=== PATIENT | female | born 2000 | race African-American/Black ===

== ENCOUNTER 2018-04-07 19:07 | Emergency (ER) | payer OTHER ==
--- OUTSIDE RECORDS SUMMARY | 2018-04-07 19:10 | XMS REPORT | Encounter Summary ---
:2000 Author Reason for Visit Medical Complaint Instructions 1. Bacterial vaginosis bacterial vaginosis in teens: care instructions metronidazole 500 mg tablet urinalysis, dipstick CT + NG DNA, PCR, unspecified specimen culture, urine Discussion Note: None recorded. Plan of Care Patient Instructions Increase fluid intake. Take med as prescribed. Wipe front to back. Wear loose cotton underwear. No EtOH while on antibiotic. If symptoms worsen follow with severe back pain, chills, fever, abdominal pain call clinic. Reminders Provider Appointments None recorded. Lab Urinalysis, [facility] Dipstick 11/08/2016 CT + NG DNA, [facility] PCR, Unspecified Specimen 11/08/2016 Culture, Urine [facility] 11/08/2016 Referral None recorded. Procedures None recorded. Surgeries None recorded. Imaging None recorded. Medications Name Start Date metronidazole 500 mg tablet Take 1 tablet every 12 hours by oral route as directed for 7 days. Medications Administered None recorded. Vitals Height Weight BMI Blood Pressure 5 ft 4 in 127 lbs 21.8 kg/m2 118/70 mm[Hg] Lab Results Date Name Specimen Result Interpretation Description Value Range Status Address Urinalysis, Color : Nicky [facility]: Dipstick [address] [place] [address] Clarity : Clear [facility]: [address] [place] [address] Leukocytes : Trace [facility]: [address] [place] [address] Nitrites : Negative [facility]: [address] [place] [address] Urobilinogen : Normal [facility]: [address] [place] [address] Protein : Negative [facility]: [address] [place] [address] Ph : 5.5 [facility]: [address] [place] [address] Blood : Large [facility]: [address] [place] [address] Specific 1.020 [facility]: [place] : [address] [place] [address] Ketones : Negative [facility]: [address] [place] [address] Bilirubin : Negative [facility]: [address] [place] [address] Glucose Negative [facility]: [address] [place] [address] Comments : Pt on [facility]: menstrual 9 [facility] Allergies Code Code System Name Reaction Severity Onset NKDA Problems No Known Problems Procedures None recorded. Vaccine List None recorded. Social History Smoking Status Never Smoker Past Encounters 11/08/2016 Bacterial Vaginosis Safia Mccartney, [facility]: [address] [place] [address], Ph. History of Present Illness [id number] Reported By: Patient HPI: Location: vagina. Quality: ; foul urine. Severity: mild. Duration: started 2 days. Onset/Timing: sudden. Context: not sexually active, no known exposure to STD, no prior history of STDs, unprotected intercourse, heterosexual, vaginal intercourse, wipes anterior to posterior. Modifying factors OTC medication. Associated Symptoms: no fever/chills, no flank pain, no jaundice, no blood in the urine, no pain during urination, no vaginal discharge, no urgency, no blisters on genitals, no rash on genitals, no muscle aches, no headache; foul vaginal "fishy odor" Review of Systems Basic Reported By: Patient Constitutional: Constitutional: no fever Eyes: Eyes: no eye complaints Aajf-Xpwf-Cquik-Throat: Ears: no ear complaints. Nose: no nose/sinus problems. Mouth/Throat: no sore throat, no bleeding gums, no mouth complaints, no teeth problems Cardiovascular: Cardiovascular: no chest pain, no shortness of breath, no known heart murmur Respiratory: Respiratory: no cough, no wheezing, no shortness of breath Gastrointestinal: Gastrointestinal: no abdominal pain, no vomiting / diarrhea Genitourinary: Genitourinary: no urinary complaints, no discharge, vaginal odor Musculoskeletal: Musculoskeletal: no muscle aches, no muscle weakness, no arthralgias/joint pain, no back pain Skin: Skin: no abnormal / changing mole, no jaundice, no rashes Neurologic: Neurologic: no loss of consciousness, no weakness, no numbness, no seizures, no dizziness, no headaches Physical Exam Adult Basic, Adult Female Complete, 14-21 Yr Females Reported By: Patient Constitutional: General Appearance: healthy-appearing, well-nourished, well-developed. Level of Distress: NAD. Ambulation: ambulating normally Psychiatric: Mental Status: active and alert. Orientation: to time, to place, to person Eyes: Lids and Conjunctivae: non-injected, no discharge, no pallor. Pupils: PERRLA. Corneas: grossly intact. EOM: EOMI. Lens: clear. Sclerae: non-icteric. Vision: acuity grossly intact Mtx-Ycyq-Ltsyq-Throat: Ears: no lesions on external ear, no outer ear tenderness, EACs clear, TMs clear. Hearing: no hearing loss. Nose: no lesions on external nose, nares patent, no septal deviation, nasal passages clear, no sinus tenderness, no nasal discharge. Lips, Teeth, and Gums: no mouth or lip ulcers, no bleeding gums, normal dentition. Oropharynx: moist mucous membranes, no erythema, no exudates, tonsils not enlarged Neck: Neck: supple, trachea midline, no masses, FROM. Lymph Nodes: no cervical LAD, no supraclavicular LAD. Thyroid: no enlargement, non-tender, no nodules Lungs: Respiratory effort: no dyspnea, no tachypnea, no use of accessory muscles, no intercostal retractions. Auscultation: breath sounds normal Cardiovascular: Heart Auscultation: RRR, no murmurs. Neck vessels: no carotid bruits
--- OUTSIDE RECORDS SUMMARY | 2018-04-07 19:10 | XMS REPORT | Encounter Summary ---
:2000 Author Reason for Visit Medical Complaint Instructions 1. Venereal disease screening CT + NG DNA, PCR, unspecified specimen Zithromax 500 mg tablet chlamydia: care instructions 2. Exposure to communicable disease Discussion Note: None recorded. Plan of Care Reminders Provider Appointments None recorded. Lab CT + NG DNA, [facility] PCR, Unspecified Specimen 08/14/2016 Referral None recorded. Procedures None recorded. Surgeries None recorded. Imaging None recorded. Medications Name Start Date Zithromax 500 mg tablet Take 2 tablets every day by oral route for 1 day. Medications Administered None recorded. Vitals Height Weight BMI Blood Pressure 5 ft 4 in 132 lbs 22.7 122/70 Lab Results None recorded. Allergies Code Code System Name Reaction Severity Onset NKDA Problems No Known Problems Procedures None recorded. Vaccine List None recorded. Social History None recorded. Past Encounters 08/14/2016 Venereal Disease Screening; Exposure to Communicable Disease Ariana Garcia PA-C: [id number] [facility] , [place] [address], Ph. History of Present Illness [id number] Reported By: Patient HPI: Context: possible/known exposure to STD, vaginal intercourse. Associated Symptoms: no fever/chills, no flank pain, no jaundice, no blood in the urine, no pain during urination, no vaginal discharge, no urgency, no blisters on genitals, no rash on genitals, no muscle aches, no headache Review of Systems Basic Reported By: Patient Constitutional: Constitutional: no fever Eyes: Eyes: no eye complaints Ttyt-Ygyg-Dmdgw-Throat: Ears: no ear complaints. Nose: no nose/sinus problems. Mouth/Throat: no sore throat, no bleeding gums, no mouth complaints, no teeth problems Cardiovascular: Cardiovascular: no chest pain, no shortness of breath, no known heart murmur Respiratory: Respiratory: no cough, no wheezing, no shortness of breath Gastrointestinal: Gastrointestinal: no abdominal pain, no vomiting / diarrhea Genitourinary: Genitourinary: no urinary complaints, no discharge Musculoskeletal: Musculoskeletal: no muscle aches, no muscle weakness, no arthralgias/joint pain, no back pain Skin: Skin: no abnormal / changing mole, no jaundice, no rashes Neurologic: Neurologic: no loss of consciousness, no weakness, no numbness, no seizures, no dizziness, no headaches Physical Exam 14-21 Yr Females Reported By: Patient General Appearance: General: well-developed, well-nourished, no acute distress Eyes: External Eye: no discharge. Conjunctiva: non-injected, non-icteric. Pupils: equal size, round, reactive to light. Extraocular Movements: normal cover/uncover test Cardiovascular: Apical impulse: not displaced. Rate and rhythm: regular. Heart Sounds: no murmur, no gallops, no rub, normal femoral pulse Lungs: Auscultation: clear to auscultation, no wheezing, no rales/crackles, no rhonchi, no tachypnea, no retractions. Percussion: normal, no dullness, no hyperresonance, no tympany Abdomen: Palpation: non-distended, no guarding, no tenderness, (normal) bowel sounds. Liver: non-tender, no hepatomegaly. Spleen: non-tender, no splenomegaly. Hernia: no palpable hernias
--- OUTSIDE RECORDS SUMMARY | 2018-04-07 19:10 | XMS REPORT | Continuity of Care Document ---
:2000 Author Organization Interface Problems Problem Status Onset Classification Date Comments Source Date Reported Acute 02/19/20 Diagnosis 02/19/2017 [facility] tonsillitis 17 Fever 02/19/20 Diagnosis 02/19/2017 [facility] 17 Bacterial 11/09/19 Diagnosis 11/08/2016 [facility] vaginosis 17 Venereal disease 08/15/19 Diagnosis 08/15/2016 [facility] screening 17 Exposure to 08/15/19 Diagnosis 08/15/2016 [facility] communicable 17 disease No current Problem 02/19/2017 [facility] problems or disability Medications Medication Details Route Status Patient Ordering Order Source Instructions Provider Date Acetaminophen acetaminophen Active [facility] 500 MG Oral 500 mg tablet Tablet Take 2 tablets by oral route. Amoxicillin 875 amoxicillin 875 Active [facility] MG Oral Tablet mg tablet Take 1 tablet every 12 hours by oral route as directed for 10 days. Metronidazole metronidazole Active [facility] 500 MG Oral 500 mg tablet Tablet Take 1 tablet every 12 hours by oral route as directed for 7 days. Azithromycin Zithromax 500 Active [facility] 500 MG Oral mg tablet Take Tablet 2 tablets every [Zithromax] day by oral route for 1 day. Allergies, Adverse Reactions, Alerts Substance Category Reaction Severity Reaction Status Date Comments Source type Reported Immunizations Immunization Date Given Site Status Last Updated Comments Source Results Order Name Results Value Reference Date Interpretation Comments Source Range RESULT negative 02/18 [facility] RESULT negative 02/18 [facility] SWAB LOCATION Left and 02/18 [facility] Right /2016 tonsillar pillars Influenza A negative 02/18 [facility] Influenza B negative 02/18 [facility] Urinalysis COLOR : Nicky 11/08 [facility] macro (dipstick) panel - Urine Urinalysis CLARITY : Clear 11/08 [facility] (dipstick) panel - Urine Urinalysis LEUKOCYTES : Trace 11/08 [facility] macro (dipstick) panel - Urine Urinalysis NITRITES : Negative 11/08 [facility] (dipstick) panel - Urine Urinalysis UROBILINOGEN Normal 11/08 [facility] macro : (dipstick) panel - Urine Urinalysis PROTEIN : Negative 11/08 [facility] macro (dipstick) panel - Urine Urinalysis pH : 5.5 11/08 [facility] macro (dipstick) panel - Urine Urinalysis BLOOD : Large 11/08 [facility] macro (dipstick) panel - Urine Urinalysis SPECIFIC 1.020 11/08 [facility] macro GRAVITY : (dipstick) panel - Urine Urinalysis KETONES : Negative 11/08 [facility] macro (dipstick) panel - Urine Urinalysis BILIRUBIN : Negative 11/08 [facility] macro (dipstick) panel - Urine Urinalysis GLUCOSE Negative 11/08 [facility] macro (dipstick) panel - Urine Urinalysis COMMENTS : Pt on 11/08 [facility] macro (dipstick) panel - Urine Vital Signs Vital Sign Value Date Comments Source Diastolic (mm Hg) 62 02/18/2017 [facility] Height 64 02/18/2017 [facility] Systolic (mm Hg) 104 02/18/2017 [facility] Weight 133 02/18/2017 [facility] Diastolic (mm Hg) 70 11/08/2016 [facility] Height 64 11/08/2016 [facility] Systolic (mm Hg) 118 11/08/2016 [facility] Weight 127 11/08/2016 [facility] Diastolic (mm Hg) 70 08/14/2016 [facility] Height 64 08/14/2016 [facility] Systolic (mm Hg) 122 08/14/2016 [facility] Weight 132 08/14/2016 [facility] Encounters Location Location Encounter Encounter Reason Attending ADM DC Status Source Details Type Number For Provider Date Date Visit [place] - Ariana [id number] Ariana 08/14 [facility] Angel Garcia-[id number] Jose /Ángela - PAJose ManuelC: 2805 [id number] [id number] [facility] [place] [address] , Ph. LLOYD - Safia [id number] Safia 11/08 [facility] Angel Mccartney-[id number] Mccartney ACCOUNTING GENERALIST: 2805 [id number] [place] [address] , Ph. LLOYD Richard Safia [id number] Safia 02/18 [facility] RedRenata Mccartney, [id number] Mccartney ACCOUNTING GENERALIST: 2805 [id number] [place] [address] , Ph. Procedures Procedure Code Date Perfomer Comments Source
--- OUTSIDE RECORDS SUMMARY | 2018-04-07 19:10 | XMS REPORT | Encounter Summary ---
:2000 Author Reason for Visit Medical Complaint Instructions 1. Acute tonsillitis rapid strep group A, throat mononucleosis, heterophile Ab, blood amoxicillin 875 mg tablet culture, throat 2. Fever rapid flu (A+B) acetaminophen 500 mg tablet Discussion Note: None recorded.Patient educational handouts: No information available. Plan of Care Patient Instructions Take antibiotic as prescribed. Handwashing. Increase fluid intake and plenty of rest. May take tynenol/motrin for pain. may use cloraseptic throat spray for sore throat. Gargles warm salt water, cepacol. Throw away old toothbrush after 2 days of antibiotic. Avoid sharing drinks/utensils. If no improvement in 3 days, or worsening of symptoms, see primary care physician or call clinic. Reminders Provider Appointments None recorded. Lab Rapid Flu (A+B) [facility] 02/18/2017 Rapid Strep [facility] Group a, Throat 02/18/2017 Mononucleosis, [facility] Heterophile Ab, Blood 02/18/2017 Culture, Throat [facility] 02/18/2017 Referral None recorded. Procedures None recorded. Surgeries None recorded. Imaging None recorded. Medications Name Start Date acetaminophen 500 mg tablet Take 2 tablets by oral route. amoxicillin 875 mg tablet Take 1 tablet every 12 hours by oral route as directed for 10 days. Medications Administered Name Date acetaminophen 500 mg tablet [id number] Take 2 tablets by oral route. Vitals Height Weight BMI Blood Pressure 5 ft 4 in 133 lbs 22.8 kg/m2 104/62 mm[Hg] Lab Results Date Name Specimen Result Interpretation Description Value Range Status Address Mononucleosis, Result negative [facility]: Heterophile Ab, [address] [facility] Rapid Strep Group Result negative [facility]: a, Throat [facility] Swab Left and [facility]: Location Right [address] [facility] tonsillar [place], [facility] Rapid Flu (A+B) Influenza a negative [facility]: [facility] Influenza B negative [facility]: [facility] Allergies Code Code System Name Reaction Severity Status Onset NKDA Problems No Known Problems Procedures None recorded. Vaccine List None recorded. Social History Smoking Status Never Smoker Past Encounters 02/18/2017 Acute Tonsillitis; Fever Safia Mccartney [employer]: [address] [place] [address], Ph. History of Present Illness Throat-Oral Complaint Reported By: Patient HPI: Location: throat. Quality: sore throat. Severity: severe, pain level 10/10. Duration: 2 days. Onset/Timing: sudden. Modifying factors: OTC medication. Associated Symptoms: no fever, no headache, no body aches, no sputum production, no shortness of breath, no wheezing, no change in number of pillows needed to sleep at night, no sweats, no significant weight gain, no significant weight loss, no morning cough, no vomiting, no diarrhea, no rash, no nausea, fever, sore throat Review of Systems Basic Reported By: Patient Constitutional: Constitutional: fever Eyes: Eyes: no eye complaints Hcbv-Uvfz-Leyax-Throat: Ears: no ear complaints. Nose: no nose/sinus problems. Mouth/Throat: no bleeding gums, no mouth complaints, no teeth problems, sore throat Cardiovascular: Cardiovascular: no chest pain, no shortness [...] dizziness, no headaches Physical Exam Adult Basic, 14-21 Yr Male, Adult Female Complete, 14-21 Yr Females Reported By: Patient Constitutional: General Appearance: healthy-appearing, well-nourished, well-developed. Level of Distress: acutely ill. Ambulation: ambulating normally Psychiatric: Mental Status: active and alert, normal affect, normal mood. Orientation: to time, to place, to person Eyes: Lids and Conjunctivae: non-injected, no discharge, no pallor. Pupils: PERRLA, equal size, round, reactive to light. Corneas: grossly intact. EOM: EOMI, normal cover/uncover test. Lens: clear. Sclerae: non-icteric. Vision: acuity grossly intact Jea-Wvgw-Zkmvi-Throat: Ears: no lesions on external ear, no outer ear tenderness, EACs clear, TMs clear. Hearing: no hearing loss. Nose: no lesions on external nose, nares patent, no septal deviation, nasal passages clear, no sinus tenderness, no nasal discharge. Lips, Teeth, and Gums: no mouth or lip ulcers, no bleeding gums, normal dentition. Oropharynx: moist mucous membranes, erythema, exudates, tonsils enlarged 3+ Neck: Neck: supple, trachea midline, no masses, FROM. Lymph Nodes: no supraclavicular LAD, anterior cervical LAD. Thyroid: no enlargement, non-tender, no nodules, no asymmetry Lungs: Respiratory effort: no dyspnea, no tachypnea, no use of accessory muscles, no intercostal retractions. Auscultation: breath sounds normal, clear to auscultation, no wheezing, no rales/crackles, no rhonchi, no retractions Cardiovascular: Heart Auscultation: RRR, no murmurs, no gallops, no rub, normal femoral pulse. Apical impulse: not displaced. Rate and rhythm: regular. Neck vessels: no carotid bruits
[2018-04-07 21:10] LABS: Urine Bacteria <20 /HPF (<20); Urine Culture Reflex Order REFLEXED; Urine Mucus LIGHT /HPF (NONE SEEN); Urine RBC <5 /HPF (NONE SEEN)
[2018-04-07 22:05] LABS: Urine Blood 1+ (NEG); Urine Glucose NEGATIVE (NEG); Urine Protein NEGATIVE (NEG); Urine Specific Gravity >1.030 (1.005-1.030)
--- NOTE | 2018-04-07 23:19 | EDPHYS ---
Physician Documentation [facility] Name: Ashkan Lopez Age: 17 yrs Sex: Female : 2000 Arrival Date: 04/07/2018 Time: 19:08 Bed 9 Private MD: ED Physician Ben Stoll HPI: 04/07 22:04 This 17 yrs old Black Female presents to ER via Ambulatory with complaints of Pain With snw Urination. 22:04 The patient presents with vaginal discharge, that is malodorous green discharge, snw patient has not had similar discharge in the past. Onset: The symptoms/episode began/occurred suddenly, 1.5 week(s) ago, and became persistent. Associated signs and symptoms: The patient has no apparent associated signs or symptoms. Severity of symptoms: At their worst the symptoms were moderate. The patient has not experienced similar symptoms in the past. The patient has not recently seen a physician. 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 - Social history:: Smoking status: Patient/guardian denies using tobacco. - Ebola Screening: : Patient negative for fever greater than or equal to 101.5 degrees Fahrenheit, and additional compatible Ebola Virus Disease symptoms Patient denies exposure to infectious person Patient denies travel to an Ebola-affected area in the 21 days before illness onset No symptoms or risks identified at this time. ROS: 22:02 Constitutional: Negative for fever, chills, and weight loss, Eyes: Negative for injury, snw pain, redness, and discharge, ENT: Negative for injury, pain, and discharge, Neck: Negative for injury, pain, and swelling, Cardiovascular: Negative for chest pain, palpitations, and edema, Respiratory: Negative for shortness of breath, cough, wheezing, and pleuritic chest pain, Abdomen/GI: Negative for abdominal pain, nausea, vomiting, diarrhea, and constipation, Back: Negative for injury and pain, : Negative for injury, bleeding, and swelling, + discharge x 1.5 weeks MS/Extremity: Negative for injury and deformity, Skin: Negative for injury, rash, and discoloration, Neuro: Negative for headache, weakness, numbness, tingling, and seizure, Psych: Negative for depression, anxiety, suicide ideation, homicidal ideation, and hallucinations. Exam: 22:01 Constitutional: This is a well developed, well nourished patient who is awake, alert, snw and in no acute distress. Head/Face: Normocephalic, atraumatic. Eyes: Pupils equal round and reactive to light, extra-ocular motions intact. Lids and lashes normal. Conjunctiva and sclera are non-icteric and not injected. Cornea within normal limits. Periorbital areas with no swelling, redness, or edema. ENT: Nares patent. No nasal discharge, no septal abnormalities noted. Tympanic membranes are normal and external auditory canals are clear. Oropharynx with no redness, swelling, or masses, exudates, or evidence of obstruction, uvula midline. Mucous membranes moist. Neck: Trachea midline, no thyromegaly or masses palpated, and no cervical lymphadenopathy. Supple, full range of motion without nuchal rigidity, or vertebral point tenderness. No Meningismus. Chest/axilla: Normal chest wall appearance and motion. Nontender with no deformity. No lesions are appreciated. Cardiovascular: Regular rate and rhythm with a normal S1 and S2. No gallops, murmurs, or rubs. Normal PMI, no JVD. No pulse deficits. Respiratory: Lungs have equal breath sounds bilaterally, clear to auscultation and percussion. No rales, rhonchi or wheezes noted. No increased work of breathing, no retractions or nasal flaring. Abdomen/GI: Soft, non-tender, with normal bowel sounds. No distension or tympany. No guarding or rebound. No evidence of tenderness throughout. Back: No spinal tenderness. No costovertebral tenderness. Full range of motion. Skin: Warm, dry with normal turgor. Normal color with no rashes, no lesions, and no evidence of cellulitis. MS/ Extremity: Pulses equal, no cyanosis. Neurovascular intact. Full, normal range of motion. Neuro: Awake and alert, GCS 15, oriented to person, place, time, and situation. Cranial nerves II-XII grossly intact. Motor strength 5/5 in all extremities. Sensory grossly intact. Cerebellar exam normal. Normal gait. 22:42 : Pelvic Exam: Speculum exam: scant bleeding, cervicitis present, os that is open, snw bimanual exam reveals normal findings, no cervical motion tenderness, Sexual behavior: the patient is sexually active, and reports a single partner, +green dc. Vital Signs: 19:25 BP 124 / 70; Pulse 98; Resp 19; Temp 97.9; Pulse Ox 98% on R/A; Weight 59.87 kg; Height aj 5 ft. 4 in. (162.56 cm); 19:25 Body Mass Index 22.66 (59.87 kg, 162.56 cm) aj MDM: 20:42 Patient medically screened. snw 23:19 Data reviewed: vital signs, nurses notes. Data interpreted: Pulse oximetry: on room air snw is 98 %. Interpretation: normal. Counseling: I had a detailed discussion with the patient and/or guardian regarding: the historical points, exam findings, and any diagnostic results supporting the discharge/admit diagnosis, lab results, the need for outpatient follow up, to return to the emergency department if symptoms worsen or persist or if there are any questions or concerns that arise at home. Special discussion: Based on the history and exam findings, there is no indication for further emergent testing or inpatient evaluation. I discussed with the patient/guardian the need to see the OB Gyne specialist for further evaluation of the symptoms. I discussed with the patient/guardian the need to see the primary care provider for further evaluation of the symptoms. 04/07 19:40 Order name: Urine Culture w 04/07 19:40 Order name: Urine Microscopic Only; Complete Time: 21:12 w 04/07 20:39 Order name: Urine Dipstick--Ancillary (enter results); Complete Time: 22:06 ms 04/07 20:39 Order name: Urine --Ancillary (enter results); Complete Time: 22:06 ms 04/07 21:47 Order name: Wet Prep; Complete Time: 23:16 snw 04/07 21:47 Order name: GC Probe snw 04/07 19:40 Order name: Urine Test (obtain specimen); Complete Time: 20:38 snw 04/07 19:40 Order name: Urine Dipstick-Ancillary (obtain specimen); Complete Time: 20:38 snw 04/07 21:47 Order name: Pelvic Exam Setup; Complete Time: 22:46 snw Administered Medications: 23:35 Drug: Rocephin (cefTRIAXone) 1 grams Route: IM; Site: right gluteus; aj1 23:54 Follow up: Response: No adverse reaction aj1 23:35 Drug: Zithromax 1 grams Route: PO; aj1 23:54 Follow up: Response: No adverse reaction aj1 Disposition: 04/07/18 23:18 Discharged to Home. Impression: Vaginitis following delivery, Vaginitis, vulvitis and vulvovaginitis in diseases classified elsewhere. - Condition is Stable. - Discharge Instructions: Sexually Transmitted Disease, How to Take a Sitz Bath, Vaginitis. - Medication Reconciliation Form, Thank You Letter, Antibiotic Education, Prescription Opioid Use form. - Follow up: Private Physician; When: 2 - 3 days; Reason: Recheck today's complaints, Continuance of care, Re-evaluation by your physician. Follow up: Emergency Department; When: As needed; Reason: Worsening of condition. Addendum: 04/09/2018 20:59 Co-signature as Attending Physician, Ben Stoll MD. g s Signatures: Dispatcher [employer] EDMS Cammie Wiley RN RN ajZuleima Piña RN RN aj Carri Pabon, HIGH PRESSURE BOILER OPERATOR-C HIGH PRESSURE BOILER OPERATOR-Csnw Ben Stoll MD MD gs Corrections: (The following items were deleted from the chart) 04/07 23:56 23:18 04/07/2018 23:18 Discharged to Home. Impression: Vaginitis following delivery; aj1 Vaginitis, vulvitis and vulvovaginitis in diseases classified elsewhere. Condition is Stable. Forms are Medication Reconciliation Form, Thank You Letter, Antibiotic Education, Prescription Opioid Use. Follow up: Private Physician; When: 2 - 3 days; Reason: Recheck today's complaints, Continuance of care, Re-evaluation by your physician. Follow up: Emergency Department; When: As needed; Reason: Worsening of condition. snw
--- NOTE | 2018-04-07 23:19 | ER ---
Nurse's Notes [facility] Name: Ashkan Lopez Age: 17 yrs Sex: Female : 2000 Arrival Date: 04/07/2018 Time: 19:08 Bed 9 Private MD: Diagnosis: Vaginitis following delivery;Vaginitis, vulvitis and vulvovaginitis in diseases classified elsewhere Presentation: 04/07 19:23 Presenting complaint: Patient states: Yellow vaginal discharge and "fishy" odor for 1.5 aj weeks. Reports tenderness at vaginal opening and burning with urination. Transition of care: patient was not received from another setting of care. Onset of symptoms was March 30, 2018. Risk Assessment: Do you want to hurt yourself or someone else? Patient reports no desire to harm self or others. Initial Sepsis Screen: Does the patient meet any 2 criteria? No. Patient's initial sepsis screen is negative. Does the patient have a suspected source of infection? No. Patient's initial sepsis screen is negative. Care prior to arrival: None. 19:23 Method Of Arrival: Ambulatory 19:23 Acuity: CLARI 3 aj Triage Assessment: 19:25 General: Appears in no apparent distress. comfortable, Behavior is calm, cooperative, aj appropriate for age. Pain: Denies pain. Neuro: Level of Consciousness is awake, alert, obeys commands, Oriented to person, place, time, situation, Appropriate for age. Respiratory: Airway is patent Trachea midline Respiratory effort is even, unlabored, Respiratory pattern is regular, symmetrical. : Reports discharge, malodorous, yellow. Derm: Skin is intact, is healthy with good turgor, Skin is pink, warm \\T\\ dry. normal. 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 - Social history:: Smoking status: Patient/guardian denies using tobacco. - Ebola Screening: : Patient negative for fever greater than or equal to 101.5 degrees Fahrenheit, and additional compatible Ebola Virus Disease symptoms Patient denies exposure to infectious person Patient denies travel to an Ebola-affected area in the 21 days before illness onset No symptoms or risks identified at this time. Screenin:54 Abuse screen: Denies threats or abuse. Denies injuries from another. Nutritional aj1 screening: No deficits noted. Tuberculosis screening: No symptoms or risk factors identified. Fall Risk None identified. Assessment: 20:54 General: Appears in no apparent distress. comfortable, Behavior is calm, cooperative, aj1 appropriate for age. Pain: Denies pain. Neuro: Level of Consciousness is awake, alert, obeys commands. Cardiovascular: Patient's skin is warm and dry. Respiratory: Airway is patent Respiratory effort is even, unlabored, Respiratory pattern is regular, symmetrical. GI: No signs and/or symptoms were reported involving the gastrointestinal system. : Reports discharge, from vagina that is malodorous, yellow. EENT: No signs and/or symptoms were reported regarding the EENT system. Derm: No signs and/or symptoms reported regarding the dermatologic system. Skin is pink, warm \\T\\ dry. normal. Musculoskeletal: No signs and/or symptoms reported regarding the musculoskeletal system. Circulation, motion, and sensation intact. 22:00 Reassessment: Patient appears in no apparent distress at this time. No changes from aj1 previously documented assessment. Patient and/or family updated on plan of care and expected duration. Pain level reassessed. Patient is alert, oriented x 3, equal unlabored respirations, skin warm/dry/pink. 23:00 Reassessment: Patient appears in no apparent distress at this time. No changes from aj1 previously documented assessment. Patient and/or family updated on plan of care and expected duration. Pain level reassessed. Patient is alert, oriented x 3, equal unlabored respirations, skin warm/dry/pink. Vital Signs: 19:25 BP 124 / 70; Pulse 98; Resp 19; Temp 97.9; Pulse Ox 98% on R/A; Weight 59.87 kg; Height aj 5 ft. 4 in. (162.56 cm); 19:25 Body Mass Index 22.66 (59.87 kg, 162.56 cm) aj ED Course: 19:08 Patient arrived in ED. am2 19:25 Triage completed. aj 19:25 Arm band placed on left wrist. Patient placed in waiting room, Patient notified of wait aj time. 19:39 Carri Pabon FNP-C is [facility]. snw 19:39 Ben Stoll MD is Attending Physician. snw 20:25 Cammie Wiley, RN is Primary Nurse. aj1 20:54 Patient has correct armband on for positive identification. Bed in low position. Call aj1 light in reach. Side rails up X 1. 20:54 No provider procedures requiring assistance completed. aj1 22:46 Assist provider with pelvic exam: Set up pelvic tray. Performed by Carri OCHOA Specimens sent to lab. Patient tolerated well. 23:55 Patient did not have IV access during this emergency room visit. aj1 Administered Medications: 23:35 Drug: Rocephin (cefTRIAXone) 1 grams Route: IM; Site: right gluteus; aj1 23:54 Follow up: Response: No adverse reaction aj1 23:35 Drug: Zithromax 1 grams Route: PO; aj1 23:54 Follow up: Response: No adverse reaction aj1 Outcome: 23:18 Discharge ordered by MD. snw 23:55 Discharged to home ambulatory. aj1 23:55 Condition: good 23:55 Discharge instructions given to patient, Instructed on discharge instructions, follow up and referral plans. Demonstrated understanding of instructions, follow-up care. 23:56 Patient left the ED. aj1 Signatures: Cammie Wiley, RN RN Zuleima De Los Santos, RN RN Carri Lopez FNP-C MARBLE RUBBER-Csnw Zuleima Bowie
[2018-04-07] MEDS ORDERED: CEFTRIAXONE 1000 MG/VIAL ONE (23:30)
[2018-04-07] MEDS ORDERED: AZITHROMYCIN 250 MG TAB ONE (23:30)
[2018-04-10 18:46] LABS: C.trachomatis RNA,TMA Not Detected (Not Detected)
== END 2018-04-07 23:56 | disposition home or self-care (01) ==
LOC: ER 19:07
DX: N77.1 Vaginitis, vulvitis and vulvovaginitis in diseases classified elsewhere (principal)
CPT/HCPCS: 81003; 81015; 81025; 87086; 87088; 87210; 87490; 87590; 96372; 99283

== ENCOUNTER 2018-08-22 16:14 | Emergency (ER) | payer OTHER, SELFPAY ==
--- OUTSIDE RECORDS SUMMARY | 2018-08-22 16:17 | XMS REPORT | Continuity of Care Document ---
:2000 Author Organization Interface Problems Problem Status Onset Classification Date Comments Source Date Reported Full-term 01/22/20 08/01/2018 [facility] premature 18 rupture of membranes, unspecified as to length of time between rupture and onset of labor Resolved 01/11/20 Problem 08/01/2018 [facility] 18 Active 01/11/20 [facility] 18 Mj Active 01/11/20 [place] [id number] [place] Acute 02/19/20 Diagnosis 02/19/2017 [facility] tonsillitis 17 Fever 02/19/20 Diagnosis 02/19/2017 [facility] 17 Bacterial 11/09/19 Diagnosis 11/08/2016 [facility] vaginosis 17 Venereal disease 08/15/19 Diagnosis 08/15/2016 [facility] screening 17 Exposure to 08/15/19 Diagnosis 08/15/2016 [facility] communicable 17 disease 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 complicating childbirth 39 weeks 08/01/2018 [facility] gestation of Single live 08/01/2018 [facility] Anemia 08/01/2018 [facility] complicating childbirth Anemia, 08/01/2018 [facility] unspecified Encounter for 08/01/2018 [facility] supervision of normal , unspecified, unspecified [facility] [place] [facility] , Medications Medication Details Route Status Patient Ordering Order Source Instructions Provider Date Ibuprofen 600 mg, 1 tab, No Longer [place] Route: PO, Active 2018 Drug form: TAB, Q6H, Dosing Weight 66.364, kg, Start date: 01/11/18 12:00:00 CDT, Duration: 30 day, Stop date: 02/10/18 6:00:00 CDTNotes: (Same as: Gabby) "Do Not Crush" Take with food. ferrous sulfate 325 mg=1 tab, Active Carmen 325 mg oral PO, Daily, # 2018 enteric coated 30 tab, 0 tablet Refill(s) ibuprofen 600 mg 600 mg=1 tab, No Longer [place] oral tablet PO, Q6H, # 30 Active 2018 tab, 0 Refill(s) Docusate Sodium 100 mg=1 cap, Active [place] 100 MG Oral PO, BID, PRN 2018 Capsule Constipation, # 60 cap, 0 Refill(s) 1 tab, Route: No Longer [place] Multivitamins PO, Drug Form: Active 2018 oral tablet TAB, Dosing Weight 66.364, kg, Daily, Start date: 01/11/18 9:00:00 CDT, Duration: 30 day, Stop date: 02/09/18 9:00:00 CDT M-M-R II 0.5 mL, Route: No Longer [place] SUB-Q, Drug Active 2017 Form: PDR/INJ, Dosing Weight 66.364, kg, ONCALL, Give only if patient rubella non-immune, Start date: 01/11/18 8:00:00 CDT, Duration: 1 doses or timesNotes: (Same as: M-M-R II) (measles-mumps -rubella virus vaccine 0.5 ml INJ VL) WASTE: F/P - Red; E -Red GIVE PRIOR TO DISCHARGE Acetaminophen 325 1 tab, Route: No Longer [place] MG / Hydrocodone PO, Drug Form: Active 2018 Bitartrate 5 MG TAB, Dosing Oral Tablet Weight 66.364, kg, Q4H, PRN Pain Score 4-6, Start date: 01/11/18 7:55:00 CDT, Duration: 30 day, Stop date: 02/10/18 7:54:00 CDTNotes: (Same as: [place] 325/5) Do not exceed 4gm/day of acetaminophen. Acetaminophen 325 1 tab, Route: No Longer [place] MG / Hydrocodone PO, Drug Form: Active 2018 Bitartrate 10 MG TAB, Dosing Oral Tablet Weight 66.364, kg, Q4H, PRN Pain Score 7-10, Start date: 01/11/18 7:55:00 CDT, Duration: 30 day, Stop date: 02/10/18 7:54:00 CDTNotes: Do not exceed 4gm/day of acetaminophen. (Same as: [place] 325/10) Methylergonovine 0.2 mg, 1 mL, No Longer [place] Route: IM, Active 2017 Drug form: INJ, PRN, Dosing Weight 66.364, kg, PRN Other -See Comment, Start date: 01/11/18 7:55:00 CDT, Duration: 30 day, Stop date: 02/10/18 7:54:00 CDTNotes: (Same as:Methergine) Benzocaine 200 1 spray, No Longer [place] MG/ML Topical Route: TOP, Active 2018 [place] PRN, Drug [Dermoplast] form: SPRY, PRN Irritation, Start date: 01/11/18 7:55:00 CDT, Duration: 30 day, Stop date: 02/10/18 7:54:00 CDTNotes: (Same As: Dermoplast) WASTE: Aerosol - Return to Pharmacy FOR EXTERNAL USE ONLY Ondansetron 4 mg, 2 mL, No Longer [place] Route: IVP, Active 2017 Drug form: INJ, Q8H, Dosing Weight 66.364, kg, PRN Nausea & Vomiting, Start date: 01/11/18 7:55:00 CDT, Duration: 30 day, Stop date: 02/10/18 7:54:00 CDTNotes: (Same as: Zofran) MEDICATION WASTE Product Size: 4 mg Product Wasted: ___ mg Docusate 100 mg, 1 cap, No Longer [place] Route: PO, Active 2017 Drug form: CAP, BID, Dosing Weight 66.364, kg, PRN Constipation, Start date: 01/11/18 7:55:00 CDT, Duration: 30 day, Stop date: 02/10/18 7:54:00 CDTNotes: (Same as: Colace) (Do Not Crush) lanolin topical 1 appl, Route: No Longer [place] TOP, PRN, Drug Active 2018 form: CRM, PRN Other -See Comment, Start date: 01/11/18 7:55:00 CDT, Duration: 30 day, Stop date: 02/10/18 7:54:00 CDT zolpidem 5 mg, 1 tab, No Longer 09/08/ [facility] Route: PO, Active 2017 Drug form: TAB, Bedtime, Dosing Weight 66.364, kg, PRN Sleep, Start date: 01/11/18 7:55:00 CDT, Duration: 30 day, Stop date: 02/10/18 7:54:00 CDTNotes: (Same As: Ambien) Bisacodyl 10 mg, 1 supp, No Longer [place] Route: FL, Active 2017 Drug form: SUPP, PRN, Dosing Weight 66.364, kg, PRN Other -See Comment, Start date: 01/11/18 7:55:00 CDT, Duration: 30 day, Stop date: 02/10/18 7:54:00 CDTNotes: (Same As: Dulcolax, [place]isco-Lax) Oxytocin 30 unit, 500 No Longer [place] mL, Rate: 42 Active 2017 ml/hr, Infuse over: 11.9 hr, Dosing Weight 66.364, kg, Route: IV, Total Volume: 500 mL, Start date: 01/11/18 7:55:00 CDT, Duration: 2 day, Stop date: 01/13/18 7:54:00 CDT, Replace Every: 11.9 hr Lactated Ringers 1,000 mL, No Longer [place] IV 1,000 mL Rate: 100 Active 2017 ml/hr, Infuse over: 10 hr, Route: IV, Dosing Weight 66.364 kg, Total Volume: 1,000, Start date: 01/11/18 7:55:00 CDT, Duration: 30 day, Stop date: 02/10/18 7:54:00 CDT, 1.75, m2 RhoGam (MAR 300 microgram, Inactive [place] Charting) Route: IM, 2018 ONCE, Dosing Weight 66.364, kg, Start date: 01/11/18 2:04:00 CDT, Stop date: 01/11/18 2:04:00 CDT Penicillin G 2,500,000 No Longer [place] unit, Route: Active 2018 IVPB, ABXQ4H, Dosing Weight 66.364, kg, Start date: 01/10/18 17:00:00 CDT, Duration: 30 day, Stop date: 02/09/18 13:00:00 CDTNotes: (Same as: Pfizerpen) MEDICATION WASTE Product Size: 5,000,000 unit Product Wasted: ___ unit Pitocin 30 units 30 unit, 500 No Longer [place] in NS 500ml mL, Rate: See Active 2018 (Titrate) IV 30 Order Comments unit for Rate Details, Dosing Weight 66.364, kg, Route: IV, Total Volume: 500 mL, Priority: STAT, Start date: 01/10/18 16:06:00 CDT, Duration: 2 day, Stop date: 01/12/18 16:05:00 CDT, Replace Every: 24 hr Penicillin G 5,000,000 Inactive [place] Potassium [id number] unit, Route: 2018 UNT/ML Injectable IVPB, ONCALL, Solution Dosing Weight 66.364, kg, Start date: 01/10/18 13:00:00 CDT, Duration: 1 doses or timesNotes: (Same as: Pfizerpen) MEDICATION WASTE Product Size: 5,000,000 unit Product Wasted: ___ unit Misoprostol 1,000 No Longer [place] microgram, 5 Active 2017 tab, Route: FL, Drug form: TAB, ONCALL, Dosing Weight 66.364, kg, Start date: 01/10/18 13:00:00 CDT, Duration: 1 doses or timesNotes: (Same as:Cytotec) Take with food Famotidine 20 mg, 2 mL, No Longer [place] Route: IVP, Active 2017 Drug form: INJ, ONCALL, Dosing Weight 66.364, kg, Start date: 01/10/18 13:00:00 CDT, Duration: 30 day, Stop date: 02/09/18 12:59:00 CDTNotes: (Same as: Pepcid) Can be dilute in 5-10cc NS IVP: Slow IV push over at least 2 minutes. Citric Acid / 30 mL, Route: No Longer [place] sodium citrate PO, Drug Form: Active 2018 SOLN, Dosing Weight 66.364, kg, ONCALL, Start date: 01/10/18 13:00:00 CDT, Duration: 30 day, Stop date: 02/09/18 12:59:00 CDTNotes: (Same As: Bicitra) Methylergonovine 0.2 mg, 1 mL, No Longer [place] Route: IM, Active 2018 Drug form: INJ, ONCALL, Dosing Weight 66.364, kg, Start date: 01/10/18 13:00:00 CDT, Duration: 30 day, Stop date: 02/09/18 12:59:00 CDTNotes: (Same as:Methergine) Carboprost 250 microgram, No Longer [place] 1 mL, Route: Active 2018 IM, Drug form: INJ, ONCALL, Dosing Weight 66.364, kg, Start date: 01/10/18 13:00:00 CDT, Duration: 30 day, Stop date: 02/09/18 12:59:00 CDTNotes: (Same As: Hemabate) Lidocaine 200 mg, 20 mL, No Longer [place] Hydrochloride 10 Route: PERCUT, Active 2018 MG/ML Injectable Drug Form: Solution INJ, Dosing Weight 66.364, kg, PRN, PRN Other -See Comment, Start date: 01/10/18 12:38:00 CDT, Duration: 1 doses or times, Stop date: Limited # of timesNotes: (Same as: Xylocaine) Terbutaline 0.25 mg, 0.25 No Longer [place] mL, Route: Active 2018 SUB-Q, Drug form: INJ, PRN, Dosing Weight 66.364, kg, PRN Other -See Comment, Start date: 01/10/18 12:38:00 CDT, Duration: 1 doses or times, Stop date: Limited # of timesNotes: DO NOT USE IN [employer] OF [employer] S[employer] IMPA[employer] AREA (Same As: Brethine) Acetaminophen 325 2 tab, Route: No Longer [place] MG / Hydrocodone PO, Drug Form: Active 2018 Bitartrate 5 MG TAB, Dosing Oral Tablet Weight 66.364, kg, Q4H, PRN Pain Score 7-10, Start date: 01/10/18 12:38:00 CDT, Duration: 30 day, Stop date: 02/09/18 12:37:00 CDTNotes: (Same as: [place] 325/5) Do not exceed 4gm/day of acetaminophen. Ondansetron 4 mg, 2 mL, No Longer [place] Route: IVP, Active 2017 Drug form: INJ, Q8H, Dosing Weight 66.364, kg, PRN Nausea & Vomiting, Start date: 01/10/18 12:38:00 CDT, Duration: 30 day, Stop date: 02/09/18 12:37:00 CDTNotes: (Same as: Alexandra) MEDICATION WASTE Product Size: 4 mg Product Wasted: ___ mg Butorphanol 1 mg, 1 mL, No Longer [place] Route: IVP, Active 2017 Drug form: INJ, Q2H, Dosing Weight 66.364, kg, PRN Pain Score 4-6, Start date: 01/10/18 12:38:00 CDT, Duration: 30 day, Stop date: 02/09/18 12:37:00 CDTNotes: (Same As: Stadol) Oxytocin 30 unit, 500 No Longer [place] mL, Rate: 42 Active 2017 ml/hr, Infuse over: 11.9 hr, Dosing Weight 66.364, kg, Route: IV, Total Volume: 500 mL, Start date: 01/10/18 12:38:00 CDT, Duration: 2 day, Stop date: 01/12/18 12:37:00 CDT, Replace Every: 11.9 hr Lactated Ringers 1,000 mL, No Longer [place] IV 1,000 mL Rate: 125 Active 2018 ml/hr, Infuse over: 8 hr, Route: IV, Dosing Weight 66.364 kg, Total Volume: 1,000, Start date: 01/10/18 12:38:00 CDT, Duration: 30 day, Stop date: 02/09/18 12:37:00 CDT, 1.75, m2 Calcium Chloride 1,000 mL, No Longer [place] 0.0014 MEQ/ML / 1,000 ml/hr, Active 2018 Potassium Infuse Over: 1 Chloride 0.004 hr, Route: IV, MEQ/ML / Sodium 1,000, Drug Chloride 0.103 form: INJ, MEQ/ML / Sodium ONCE, Dosing Lactate 0.028 Weight 66.364 MEQ/ML Injectable kg, Start Solution date: 01/10/18 12:38:00 CDT, Stop date: 01/10/18 12:38:00 CDT, Bolus for regional anesthesia per unit routine Ibuprofen 600 mg, 1 tab, No Longer [place] Route: PO, Active 2017 Drug form: TAB, Q6H, Dosing Weight 66.364, kg, PRN Other -See Comment, Start date: 01/10/18 12:38:00 CDT, Duration: 30 day, Stop date: 02/09/18 12:37:00 CDTNotes: (Same as: Motrin) "Do Not Crush" Take with food. tetanus/diphth/pe 0.5 mL, Route: Inactive [place] rtuss (Tdap) IM, Drug Form: 2017 adult/adol SUSP, kg, ONCALL, Start date: 01/10/18 0:00:00 CDT, Duration: 1 doses or timesNotes: (Tdap ) For Adolecent and Adult use For IM Use. Same as: Adacel (Tdap) Acetaminophen 500 acetaminophen Active [facility] MG Oral Tablet 500 mg tablet Take 2 tablets by oral route. Amoxicillin 875 amoxicillin Active [facility] MG Oral Tablet 875 mg tablet Take 1 tablet every 12 hours by oral route as directed for 10 days. Azithromycin 500 Zithromax 500 Active [facility] MG Oral Tablet mg tablet Take [Zithromax] 2 tablets every day by oral route for 1 day. Metronidazole 500 metronidazole Active [facility] MG Oral Tablet 500 mg tablet Take 1 tablet every 12 hours by oral route as directed for 7 days. Allergies, Adverse Reactions, Alerts Substance Category Reaction Severity Reaction Status Date Comments Source type Reported Immunizations Immunization Date Site Status Last Comments Source Given Updated diphtheria/pertus Left completed [facility] sis, acel/tetanus 8 deltoid adult RhoGam (Jul Right completed [place] Result [facility] Charting)<sup>1</ 8 deltoid Comment: sup> verified with chelsey parker RN Results Order Name Results Value Reference Date Interpretation Comments Source Range HEMATOLOGY Hct 31.3 % 36.0 - 01/12 [facility] 48.0 /2017 HEMATOLOGY Hgb 10.4 g/dL 12.0 - 01/12 [facility] 16. BLOOD BANK SCREEN Neg 01/11 [facility] /2017 (01/11/18 5:33 AM) BLOOD BANK [place] Product available 3 01/11 Result Comment: 01/11/2018 06 :33 [id number] [facility] called to sylvie for pick up driver 01/11/2018 06:33 tb (01/11/18 5:00 AM) BLOOD BANK AB Int Rhig 01/10 [facility] RESULTS Anti-D BLOOD BANK ABO/Rh A NEG 01/10 [facility] BLOOD BANK [place] Reqd See Note 2 01/10 Result Comment: 01/11/2018 01:47 [id number] [facility] This patient is a candidate for RhO(D) immune globulin. 01/11/2018 01:47 tb (01/10/18 1:32 PM) BLOOD BANK Antibody Scrn Positive 1 01/10 Result Comment: 01/10/2018 14 :31 [id number] [facility] "Significant Findings called to Cornell Bradshaw at _2017 14:31 by LL_. Read Back OK." (01/10/18 1:32 PM) HEMATOLOGY Lymphocytes # 1.6 K/CMM 1.0 - 5.5 01/10 [facility] HEMATOLOGY Monocytes # 0.6 K/CMM 0.0 - 0.8 01/10 [facility] HEMATOLOGY Segs 67.7 % 45.0 - 01/10 [facility] 75.0 HEMATOLOGY Eosinophils 0.7 % 0.0 - 4.0 01/10 [facility] HEMATOLOGY Neutrophils # 4.6 K/CMM 1.5 - 8.1 01/10 [facility] HEMATOLOGY Basophils 0.2 % 0.0 - 1.0 01/10 [facility] HEMATOLOGY Lymphocytes 23.3 % 20.0 - 01/10 [facility] 40.0 HEMATOLOGY Monocytes 8.1 % 2.0 - 12.0 01/10 [facility] HEMATOLOGY Hct 31.9 % 36.0 - 01/10 [facility] 48.0 HEMATOLOGY Hgb 10.7 g/dL 12.0 - 01/10 [facility] 16.0 HEMATOLOGY RBC 3.84 M/CMM 4.20 - 01/10 [facility] 5.40 /2018 HEMATOLOGY Platelet 190 K/CMM 133 - 450 01/10 [facility] HEMATOLOGY RDW 17.4 % 11.5 - 01/10 [facility] 14.5 HEMATOLOGY MCHC 33.5 g/dL 32.0 - 01/10 [facility] 36.0 /2017 HEMATOLOGY MCH 27.9 pg 27.0 - 01/10 [facility] 31.0 /2017 HEMATOLOGY MCV 83.1 fL 80.0 - 01/10 [facility] 98.0 /2017 HEMATOLOGY MPV 8.8 fL 7.4 - 10.4 01/10 [facility] HEMATOLOGY WBC 6.8 K/CMM 3.7 - 10.4 01/10 [facility] IMMUNOLOGY HIV. Negative Negative 01/10 [facility] *NA* (01/10/18 1:32 PM) IMMUNOLOGY Hep Bs Ag Negative Negative 01/10 [facility] *NA* (01/10/18 1:32 PM) IMMUNOLOGY Treponemal Ab Non-Reactive Non 01/10 [facility] *NA* (01/10/18 1:32 PM) BODY FLUIDS Amnisure ROM Positive 1 Negative 01/10 Result Comment: *ABN* "Significa nt (01/10/18 12:06 PM) Findings called to cornell collado_ at 01/10/2018 12:26_ by ws_. Read Back OK." RESULT negative 02/18 [facility] RESULT negative 02/18 [facility] SWAB LOCATION Left and 02/18 [facility] Right /2017 tonsillar pillars Influenza A negative 02/18 [facility] Influenza B negative 02/18 [facility] Urinalysis COLOR : Nicky 11/08 [facility] macro (dipstick) panel - Urine Urinalysis CLARITY : Clear 11/08 [facility] (dipstick) panel - Urine Urinalysis LEUKOCYTES : Trace 11/08 [facility] (dipstick) panel - Urine Urinalysis NITRITES : Negative 11/08 [facility] (dipstick) panel - Urine Urinalysis UROBILINOGEN Normal 11/08 [facility] macro (dipstick) panel - Urine Urinalysis PROTEIN : Negative 11/08 [facility] macro (dipstick) panel - Urine Urinalysis pH : 5.5 11/08 [facility] macro (dipstick) panel - Urine Urinalysis BLOOD : Large 11/08 [facility] macro (dipstick) panel - Urine Urinalysis SPECIFIC 1.020 11/08 [facility] macro (dipstick) panel - Urine Urinalysis KETONES : Negative 11/08 [facility] macro (dipstick) panel - Urine Urinalysis BILIRUBIN : Negative 11/08 [facility] macro (dipstick) panel - Urine Urinalysis GLUCOSE Negative 11/08 [facility] macro (dipstick) panel - Urine Urinalysis COMMENTS : Pt on 11/08 [facility] macro (dipstick) panel - Urine Vital Signs Vital Sign Value Date Comments Source Systolic (mm Hg) 105 01/12/2018 [facility] Diastolic (mm Hg) 65 01/12/2018 [facility] Respitory Rate 18 01/12/2018 [facility] Heart Rate 82 01/12/2018 [facility] Temperature Oral (F) 97.6 F 01/12/2018 [facility] Systolic (mm Hg) 97 01/12/2018 [facility] Diastolic (mm Hg) 54 01/12/2018 [facility] Temperature Oral (F) 98.4 F 01/12/2018 [facility] Respitory Rate 16 01/12/2018 [facility] Respitory Rate 16 01/12/2018 [facility] Temperature Oral (F) 98.5 F 01/12/2018 [facility] Systolic (mm Hg) 115 01/12/2018 [facility] Diastolic (mm Hg) 58 01/12/2018 [facility] Height 162.56 cm 01/10/2018 [facility] BMI Calculated 25.11 01/10/2018 [facility] Weight 66.364 01/10/2018 [facility] Diastolic (mm Hg) 62 02/18/2017 [facility] Height [...] Provider Date Date Visit [place] - Ariana [id number] Ariana 08/14 [facility] Jose, [id number] Garcia c - PA-C: [id number] [place] [address] , Ph. LLOYD Baig [id number] Safia 11/08 [facility] [place]rill [id number] Mccartney c - [employer] OFF[employer]ER: [id number] [place] [address] , Ph. LLOYD Baig [id number] Safia 02/18 [facility] [place], [id number]- Mccartney c - [employer]NAG[employer] OFFICER: [id number] [address] [place] [address] , Ph. [facility] [phone] Lucian 01/10 01/12 SUELLEN Barker [place] /2017 [facility] Procedures Procedure Code Date Perfomer Comments Source
--- OUTSIDE RECORDS SUMMARY | 2018-08-22 16:18 | XMS REPORT | Summary of Care ---
:2000 Author Organization [facility] Address [id number] [place] [id number] Encounter HQ Silke(FLORENTIN) [id number] Date(s): 01/10/18 - 01/12/18 [facility] [id number] [place] [phone] Encounter Diagnosis Full-term premature rupture of membranes, unspecified as to length of time between rupture and onsetof labor (Final) - 01/20/18 Streptococcus B carrier state complicating childbirth (Final) - 39 weeks gestation of (Final) - Single live (Final) - Anemia complicating childbirth (Final) - Anemia, unspecified (Final) - Encounter for supervision of normal , unspecified, unspecified trimester (Final) - Discharge Disposition: Home or Self Care Attending Physician: Lucian Nazario MD Admitting Physician: Lucian Nazario MD Vital Signs Most recent to oldest [Reference 1 2 3 Range]: Height 162.56 cm (01/10/18 11:51 AM) Temperature Oral [96.4-99.1 97.6 DegF 98.4 DegF 98.5 DegF DegF] (01/12/18 8:04 AM) (01/12/18 4:10 AM) (01/12/18 12:02 AM) Blood Pressure [90-140/60-90 105/65 mmHg 97/54 mmHg 115/58 mmHg mmHg] (01/12/18 8:04 AM) (01/12/18 4:10 AM) (01/12/18 12:02 AM) Respiratory Rate [14-20 BRMIN] 18 BRMIN 16 BRMIN 16 BRMIN (01/12/18 8:04 AM) (01/12/18 4:10 AM) (01/12/18 12:02 AM) Peripheral Pulse Rate [60-100 82 bpm bpm] (01/12/18 8:04 AM) Weight 66.364 kg (01/10/18 11:51 AM) Body Mass Index 25.11 m2 (01/10/18 11:51 AM) Problem List Condition Effective Dates Status Health Status Informant (Confirmed) 01/10/18 - 01/10/18 Resolved (Confirmed) 11/20/13 - 08/20/14 Resolved Allergies, Adverse Reactions, Alerts Substance Reaction Severity Status NKDA Active Medications acetaminophen-hydrocodone 325 mg-10 mg oral tablet 1 tab, Route: PO, Drug Form: TAB, Dosing Weight 66.364, kg, Q4H, PRN Pain Score 7-10, Start date: 01/11/18 7:55:00 CDT, Duration: 30 day, Stop date: 02/10/18 7: 54:00 CDT Notes: Do not exceed 4gm/day of acetaminophen. (Same as: Goodman 325/10) Start Date: 01/11/18 Stop Date: 01/12/18 Status: Discontinuedacetaminophen-hydrocodone 325 mg-5 mg oral tablet 1 tab, Route: PO, Drug Form: TAB, Dosing Weight 66.364, kg, Q4H, PRN Pain Score 4-6, Start date: 01/11/18 7:55:00 CDT, Duration: 30 day, Stop date: 02/10/18 7: 54:00 CDT Notes: (Same as: Goodman 325/5) Do not exceed 4gm/day of acetaminophen. Start Date: 01/11/18 Stop Date: 01/12/18 Status: Discontinuedacetaminophen-hydrocodone 325 mg-5 mg oral tablet 2 tab, Route: PO, Drug Form: TAB, Dosing Weight 66.364, kg, Q4H, PRN Pain Score 7-10, Start date: 01/10/18 12:38:00 CDT, Duration: 30 day, Stop date: 02/09/18 12:37:00 CDT Notes: (Same as: Goodman 325/5) Do not exceed 4gm/day of acetaminophen. Start Date: 01/10/18 Stop Date: 01/11/18 Status: Discontinuedacetaminophen-hydrocodone 325 mg-5 mg oral tablet 1 tab, Route: PO, Drug Form: TAB, Dosing Weight 66.364, kg, Q4H, PRN Pain Score 4-6, Start date: 01/10/18 12:38:00 CDT, Duration: 30 day, Stop date: 02/09/18 12 :37:00 CDT Notes: (Same as: Goodman 325/5) Do not exceed 4gm/day of acetaminophen. Start Date: 01/10/18 Stop Date: 01/11/18 Status: Discontinuedbisacodyl 10 mg, 1 supp, Route: AK, Drug form: SUPP, PRN, Dosing Weight 66.364, kg, PRN Other -See Comment, Start date: 01/11/18 7:55:00 CDT, Duration: 30 day, Stop date: 02/10/18 7:54:00 CDT Notes: (Same As: Dulcolax, Bisco-Lax) Start Date: 01/11/18 Stop Date: 01/12/18 Status: Discontinuedbisacodyl 15 mg, 3 tab, Route: PO, Drug form: ECTAB, Daily, Dosing Weight 66.364, kg, PRN Other -See Comment, Start date: 01/11/18 7:55:00 CDT, Duration: 30 day, Stop date: 02/10/18 7:54:00 CDT Notes: (Same As: Dulcolax, Correctol) (Do Not Crush) "Do Not Crush" Start Date: 01/11/18 Stop Date: 01/12/18 Status: Discontinuedbutorphanol 1 mg, 1 mL, Route: IVP, Drug form: INJ, Q2H, Dosing Weight 66.364, kg, PRN Pain Score 4-6, Start date: 01/10/18 12:38:00 CDT, Duration: 30 day, Stop date: 02/09 12:37:00 CDT Notes: (Same As: Stadol) Start Date: 01/10/18 Stop Date: 01/11/18 Status: Discontinuedbutorphanol 2 mg, 2 mL, Route: IVP, Drug form: INJ, Q2H, Dosing Weight 66.364, kg, PRN Pain Score 7-10, Start date: 01/10/18 12:38:00 CDT, Duration: 30 day, Stop date: 11/20 12:37:00 CDT Notes: (Same As: Stadol) Start Date: 01/10/18 Stop Date: 01/11/18 Status: Discontinuedcarboprost 250 microgram, 1 mL, Route: IM, Drug form: INJ, ONCALL, Dosing Weight 66.364, kg , Start date: 01/10/18 13:00:00 CDT, Duration: 30 day, Stop date: 02/09/18 12:59 :00 CDT Notes: (Same As: Hemabate) Start Date: 01/10/18 Stop Date: 01/11/18 Status: Discontinuedcitric acid-sodium citrate 30 mL, Route: PO, Drug Form: SOLN, Dosing Weight 66.364, kg, ONCALL, Start date : 01/10/18 13:00:00 CDT, Duration: 30 day, Stop date: 02/09/18 12:59:00 CDT Notes: (Same As: Bicitra) Start Date: 01/10/18 Stop Date: 01/11/18 Status: DiscontinuedDermoplast 20% topical spray 1 spray, Route: TOP, PRN, Drug form: SPRY, PRN Irritation, Start date: 01/11/18 7:55:00 CDT, Duration: 30 day, Stop date: 02/10/18 7:54:00 CDT Notes: (Same As: Dermoplast)WASTE: Aerosol - Return to Pharmacy FOR EXTERNAL USE ONLY Start Date: 01/11/18 Stop Date: 01/12/18 Status: Discontinueddocusate 100 mg, 1 cap, Route: PO, Drug form: CAP, BID, Dosing Weight 66.364, kg, PRN Constipation, Start date: 01/11/18 7:55:00 CDT, Duration: 30 day, Stop date: 12/21 7:54:00 CDT Notes: (Same as: Colace) (Do Not Crush) Start Date: 01/11/18 Stop Date: 01/12/18 Status: Discontinueddocusate sodium 100 mg oral capsule 100 mg=1 cap, PO, BID, PRN Constipation, # 60 cap, 0 Refill(s) Start Date: 01/11/18 Status: Orderedfamotidine 20 mg, 2 mL, Route: IVP, Drug form: INJ, ONCALL, Dosing Weight 66.364, kg, Start date: 01/10/18 13:00:00 CDT, Duration: 30 day, Stop date: 02/09/18 12:59: 00 CDT Notes: (Same as: Pepcid)Can be dilute in 5-10cc NS IVP: Slow IV push over at least 2 minutes. Start Date: 01/10/18 Stop Date: 01/11/18 Status: Discontinuedferrous sulfate 325 mg oral enteric coated tablet 325 mg=1 tab, PO, Daily, # 30 tab, 0 Refill(s) Start Date: 01/11/18 Status: Orderedibuprofen 600 mg, 1 tab, Route: PO, Drug form: TAB, Q6H, Dosing Weight 66.364, kg, Start date: 01/11/18 12:00:00 CDT, Duration: 30 day, Stop date: 02/10/18 6:00:00 CDT Notes: (Same as: Gabby)"Do Not Crush" Take with food. Start Date: 01/11/18 Stop Date: 01/12/18 Status: Discontinuedibuprofen 600 mg, 1 tab, Route: PO, Drug form: TAB, Q6H, Dosing Weight 66.364, kg, PRN Other -See Comment, Start date: 01/10/18 12:38:00 CDT, Duration: 30 day, Stop date: 02/09/18 12:37:00 CDT Notes: (Same as: Motrin)"Do Not Crush" Take with food. Start Date: 01/10/18 Stop Date: 01/11/18 Status: Discontinuedibuprofen 600 mg oral tablet 600 mg=1 tab, PO, Q6H, # 30 tab, 0 Refill(s) Start Date: 01/11/18 Stop Date: 01/18/18 Status: CompletedLactated Ringers (Bolus) IV 1,000 mL, 1,000 ml/hr, Infuse Over: 1 hr, Route: IV, 1,000, Drug form: INJ, ONCE , Dosing Weight 66.364 kg, Start date: 01/10/18 12:38:00 CDT, Stop date: 12:38:00 CDT, Bolus for regional anesthesia per unit routine Start Date: 01/10/18 Stop Date: 01/11/18 Status: DiscontinuedLactated Ringers IV 1,000 mL 1,000 mL, Rate: 100 ml/hr, Infuse over: 10 hr, Route: IV, Dosing Weight 66.364 kg, Total Volume: 1,000, Start date: 01/11/18 7:55:00 CDT, Duration: 30 day, Stop date: 02/10/18 7:54:00 CDT, 1.75, m2 Start Date: 01/11/18 Stop Date: 01/12/18 Status: DiscontinuedLactated Ringers IV 1,000 mL 1,000 mL, Rate: 125 ml/hr, Infuse over: 8 hr, Route: IV, Dosing Weight 66.364 kg , Total Volume: 1,000, Start date: 01/10/18 12:38:00 CDT, Duration: 30 day, Stop date: 02/09/18 12:37:00 CDT, 1.75, m2 Start Date: 01/10/18 Stop Date: 01/11/18 Status: Discontinuedlanolin topical 1 appl, Route: TOP, PRN, Drug form: CRM, PRN Other -See Comment, Start date: 12/21 7:55:00 CDT, Duration: 30 day, Stop date: 02/10/18 7:54:00 CDT Start Date: 01/11/18 Stop Date: 01/12/18 Status: Discontinuedlidocaine 1% 200 mg, 20 mL, Route: PERCUT, Drug Form: INJ, Dosing Weight 66.364, kg, PRN, PRN Other -See Comment,Start date: 01/10/18 12:38:00 CDT, Duration: 1 doses or times, Stop date: Limited # of times Notes: (Same as: Xylocaine) Start Date: 01/10/18 Stop Date: 01/11/18 Status: Discontinuedlidocaine 1% injectable solution 0.25 mL, Route: INTRADERM, Drug Form: INJ, Dosing Weight 66.364, kg, PRN, PRN Other -See Comment, Start date: 01/10/18 12:38:00 CDT, Duration: 30 day, Stop date: 02/09/18 12:37:00 CDT Notes: Preservative free. (Same as: Xylocaine MPF) Start Date: 01/10/18 Stop Date: 01/11/18 Status: KcknkdgelsntI-P-Y II 0.5 mL, Route: SUB-Q, Drug Form: PDR/INJ, Dosing Weight 66.364, kg, ONCALL, Give only if patient rubella non-immune, Start date: 01/11/18 8:00:00 CDT, Duration: 1 doses or times Notes: (Same as: M-M-R II) (zgezuwh-dbclj-bniveny virus vaccine 0.5 ml INJ VL) WASTE: F/P - Red; E -Red GIVE PRIOR TO DISCHARGE Start Date: 01/11/18 Stop Date: 01/12/18 Status: Discontinuedmethylergonovine 0.2 mg, 1 mL, Route: IM, Drug form: INJ, PRN, Dosing Weight 66.364, kg, PRN Other -See Comment, Start date: 01/11/18 7:55:00 CDT, Duration: 30 day, Stop date: 02/10/18 7:54:00 CDT Notes: (Same as:Methergine) Start Date: 01/11/18 Stop Date: 01/12/18 Status: Discontinuedmethylergonovine 0.2 mg, 1 mL, Route: IM, Drug form: INJ, ONCALL, Dosing Weight 66.364, kg, Start date: 01/10/18 13:00:00 CDT, Duration: 30 day, Stop date: 02/09/18 12:59: 00 CDT Notes: (Same as:Methergine) Start Date: 01/10/18 Stop Date: 01/11/18 Status: Discontinuedmisoprostol 1,000 microgram, 5 tab, Route: AK, Drug form: TAB, ONCALL, Dosing Weight 66.364 , kg, Start date: 01/10/18 13:00:00 CDT, Duration: 1 doses or times Notes: (Same as:Cytotec) Take with food Start Date: 01/10/18 Stop Date: 01/11/18 Status: Discontinuedondansetron 4 mg, 2 mL, Route: IVP, Drug form: INJ, Q8H, Dosing Weight 66.364, kg, PRN Nausea & Vomiting, Start date: 01/11/18 7:55:00 CDT, Duration: 30 day, Stop date: 02/10/18 7:54:00 CDT Notes: (Same as: Zofran) MEDICATION WASTE Product Size: 4 mgProduct Wasted: ___ mg Start Date: 01/11/18 Stop Date: 01/12/18 Status: Discontinuedondansetron 4 mg, 2 mL, Route: IVP, Drug form: INJ, Q8H, Dosing Weight 66.364, kg, PRN Nausea & Vomiting, Start date: 01/10/18 12:38:00 CDT, Duration: 30 day, Stop date: 02/09/18 12:37:00 CDT Notes: (Same as: Zofran) MEDICATION WASTE Product Size: 4 mgProduct Wasted: ___ mg Start Date: 01/10/18 Stop Date: 01/11/18 Status: Discontinuedoxytocin 30 units in NS 500ml (Titrate) IV 30 unit 30 unit, 500 mL, Rate: 42 ml/hr, Infuse over: 11.9 hr, Dosing Weight 66.364, kg , Route: IV, Total Volume: 500 mL, Start date: 01/11/18 7:55:00 CDT, Duration: 2 day, Stop date: 01/13/18 7:54:00 CDT, Replace Every: 11.9 hr Start Date: 01/11/18 Stop Date: 01/12/18 Status: Discontinuedoxytocin 30 units in NS 500ml (Titrate) IV 30 unit 30 unit, 500 mL, Rate: 42 ml/hr, Infuse over: 11.9 hr, Dosing Weight 66.364, kg , Route: IV, Total Volume: 500 mL, Start date: 01/10/18 12:38:00 CDT, Duration: 2 day, Stop date: 01/12/18 12:37:00 CDT, Replace Every: 11.9 hr Start Date: 01/10/18 Stop Date: 01/11/18 Status: Discontinuedpenicillin G potassium + Sodium Chloride 0.9% IV 50 mL 2,500,000 unit, Route: IVPB, ABXQ4H, Dosing Weight 66.364, kg, Start date: 01/10 17:00:00 CDT, Duration: 30 day, Stop date: 02/09/18 13:00:00 CDT Notes: (Same as: Pfizerpen) MEDICATION WASTE Product Size: 5,000,000 unitProduct Wasted: ___ unit Start Date: 01/10/18 Stop Date: 01/11/18 Status: Discontinuedpenicillin G potassium 5,000,000 units injection + Sodium Chloride 0.9% IV 100 mL 5,000,000 unit, Route: IVPB, ONCALL, Dosing Weight 66.364, kg, Start date: 01/10 13:00:00 CDT, Duration: 1 doses or times Notes: (Same as: Pfizerpen) MEDICATION WASTE Product Size: 5,000,000 unitProduct Wasted: ___ unit Start Date: 01/10/18 Stop Date: 01/10/18 Status: CompletedPitocin 30 units in NS 500ml (Titrate) IV 30 unit 30 unit, 500 mL, Rate: See Order Comments for Rate Details, Dosing Weight 66.364 , kg, Route: IV, Total Volume: 500 mL, Priority: STAT, Start date: 01/10/18 16: 06:00 CDT, Duration: 2 day, Stop date: 01/12/18 16:05:00 CDT, Replace Every: 24 hr Start Date: 01/10/18 Stop Date: 01/12/18 Status: DiscontinuedPrenatal Multivitamins oral tablet 1 tab, Route: PO, Drug Form: TAB, Dosing Weight 66.364, kg, Daily, Start date: 01/11/18 9:00:00 CDT,Duration: 30 day, Stop date: 02/09/18 9:00:00 CDT Start Date: 01/11/18 Stop Date: 01/12/18 Status: DiscontinuedRhoGam (MAR Charting) 300 microgram, Route: IM, ONCE, Dosing Weight 66.364, kg, Start date: 01/11/18 2 :04:00 CDT, Stop date: 01/11/18 2:04:00 CDT Start Date: 01/11/18 Stop Date: 01/11/18 Status: Discontinuedterbutaline 0.25 mg, 0.25 mL, Route: SUB-Q, Drug form: INJ, PRN, Dosing Weight 66.364, kg, PRN Other -See Comment, Start date: 01/10/18 12:38:00 CDT, Duration: 1 doses or times, Stop date: Limited # of times Notes: DO NOT USE IN [employer] AREA(Same As: Penelope) Start Date: 01/10/18 Stop Date: 01/11/18 Status: Discontinuedtetanus/diphth/pertuss (Tdap) adult/adol 0.5 mL, Route: IM, Drug Form: SUSP, kg, ONCALL, Start date: 01/10/18 0:00:00 CDT , Duration: 1 doses or times Notes: (Tdap ) For Adolecent and Adult use For IM Use. Same as: Adacel (Tdap) Start Date: 01/10/18 Stop Date: 01/10/18 Status: Discontinuedzolpidem 5 mg, 1 tab, Route: PO, Drug form: TAB, Bedtime, Dosing Weight 66.364, kg, PRN Sleep, Start date: 01/11/18 7:55:00 CDT, Duration: 30 day, Stop date: 02/10/18 7 :54:00 CDT Notes: (Same As: Cherrie) Start Date: 01/11/18 Stop Date: 01/12/18 Status: Discontinued Results BLOOD BANK RESULTS Most recent to oldest [Reference Range]: 1 2 ABO/Rh A NEG *Unknown* (01/10/18 1:32 PM) Antibody Scrn Positive 1 (01/10/18 1:32 PM) AB Int Rhig Anti-D *Unknown* (01/10/18 1:32 PM) FS Pt Neg (01/11/18 5:33 AM) Rhig Reqd See Note 2 (01/10/18 1:32 PM) Rhig Product available 3 (01/11/18 5:00 AM) 1Result Comment: 01/10/2018 14:31 [id number] "Significant Findings called to Yasmine Bradshaw at _01/10/2018 14:31 by LL_. Read Back OK."2Result Comment: 01/11/2018 01:47 [id number] This patient is a candidate for RhO(D) immune globulin. 01/11/2018 01:47 [id number] Comment: 01/11/2018 06:33 [id number] called to sylvie for pick up worker 01/11/2018 06:33 tbBODY FLUIDS Most recent to oldest [Reference Range]: 1 2 Amnisure ROM [Negative] Positive 1 *ABN* (01/10/18 12:06 PM) 1Result Comment: "Significant Findings called to yasmine collado_ at 01/10/2018 12: 26_ by ws_. Read BackOK."IMMUNOLOGY Most recent to oldest [Reference Range]: 1 2 Treponemal Ab [Non-Reactive] Non-Reactive *NA* (01/10/18 1:32 PM) HIV. [Negative] Negative *NA* (01/10/18 1:32 PM) Hep Bs Ag [Negative] Negative *NA* (01/10/18 1:32 PM) HEMATOLOGY Most recent to oldest [Reference Range]: 1 2 WBC [3.7-10.4 K/CMM] 6.8 K/CMM (01/10/18 1:32 PM) RBC [4.20-5.40 M/CMM] 3.84 M/CMM *LOW* (01/10/18 1:32 PM) Hgb [12.0-16.0 g/dL] 10.4 g/dL 10.7 g/dL *LOW* *LOW* (01/12/18 4:07 AM) (01/10/18 1:32 PM) Hct [36.0-48.0 %] 31.3 % 31.9 % *LOW* *LOW* (01/12/18 4:07 AM) (01/10/18 1:32 PM) MCV [80.0-98.0 fL] 83.1 fL (01/10/18 1:32 PM) MCH [27.0-31.0 pg] 27.9 pg (01/10/18 1:32 PM) MCHC [32.0-36.0 g/dL] 33.5 g/dL (01/10/18 1:32 PM) RDW [11.5-14.5 %] 17.4 % *HI* (01/10/18 1:32 PM) MPV [7.4-10.4 fL] 8.8 fL (01/10/18 1:32 PM) Platelet [133-450 K/CMM] 190 K/CMM (01/10/18 1:32 PM) Segs [45.0-75.0 %] 67.7 % (01/10/18 1:32 PM) Lymphocytes [20.0-40.0 %] 23.3 % (01/10/18 1:32 PM) Monocytes [2.0-12.0 %] 8.1 % (01/10/18 1:32 PM) Eosinophils [0.0-4.0 %] 0.7 % (01/10/18 1:32 PM) Basophils [0.0-1.0 %] 0.2 % (01/10/18 1:32 PM) Neutrophils # [1.5-8.1 K/CMM] 4.6 K/CMM (01/10/18 1:32 PM) Lymphocytes # [1.0-5.5 K/CMM] 1.6 K/CMM (01/10/18 1:32 PM) Monocytes # [0.0-0.8 K/CMM] 0.6 K/CMM (01/10/18 1:32 PM) Immunizations Given and Recorded Vaccine Date Status Refusal Reason diphtheria/pertussis, acel/tetanus adult 01/12/18 Given RhoGam (MAR Charting)1 01/11/18 Given 1Result Comment: verified with chelsey parker RN Procedures No data available for this section Social History Social History Type Response Smoking Status Never smoker; Previous treatment: None; Ready to change: No; Concerns about tobacco use in household: No; Exposure to Tobacco Smoke None; Cigarette Smoking Last 365 Days No; Reg Smoking Cessation Counseling No entered on: 01/10/18 Assessment and Plan Extracted from: Title: OB Discharge Summary, Author: Lucian Nazario MD Date: 01/11/18 * Discharge Information The patient is 1 day(s) . Delivery date was 01/10/2018 vaginally. Breast feeding of the infant was discontinued. suppression ia completed. May not resume sexual activity. Th e contraception plan consists of none. Coexisting conditions consist of none. Discharge Summary Information: Admitted 01/10/2018, Discharged 01/12/2018. Discharge diagnosis: Premature rupture of membranes (CQM19-KD O42.90, Working, Medical), Normal spontaneous vaginal delivery ([id number] O80, Working, Medical). Discharge Plan Discharge Summary Plan Discharge Status: stable. Discharge disposition: discharge to home self care. Prescriptions: reviewed with patient, written and given to patient. Discharge instructions given: to patient. Diagnosis PROM @ 39 weeks . Course Progressing as expected. Follow-up Return to office: Lucian Nazario MD, 4 weeks. Extracted from: Title: OB H&P Author: Adeola Mcclain MD Date: 01/10/18 Basic Information Gestational Age: * Note: EGA calculated as of 01/10/2018 NYDIA: 01/15/2018 EGA*: 39 weeks 2 days Type: Authoritative Method Date: 01/10/2018 Method: Last Menstrual Period (01/10/2018) Confirmation: Confirmed Description: -- Comments: -- Entered by: SOL COLLADO on 01/10/2018 Other NYDIA Calculations for this : No additional NYDIA calculations have been recorded for this . History of Present Illness Maternal history Maternal History (ST) Maternal History (ST) Maternal History : 2 Para: 1 SAB: 0 IAB: 0 Maternal Pre- Labs Transcribed ABO Blood Type: O- Transcribed Substance Abuse: None Transcribed GBS results: Positive Transcribed HBsAg: Unknown Transcribed HIV Status: Unknown Transcribed HIV 3rd Trimester: Unknown Transcribed RPR/VDRL Results: Unknown Transcribed STD Results: None, Chlamydia Maternal Risk Factors Maternal Risk Factors Antepartum: Group B Streptococcus . Review of Systems Constitutional: Negative. Eye: Negative. Ear/Nose/Mouth/Throat: Negative. Respiratory: Negative. Cardiovascular: Negative. Breast: Negative. Gastrointestinal: Negative. Genitourinary: Negative. Gynecologic: Negative. Hematology/Lymphatics: Negative. Endocrine: Negative. Immunologic: Negative. Musculoskeletal: Negative. Neurologic: Negative. Psychiatric: Negative. All other systems are negative Health Status Allergies: (Active and Proposed Allergies Only) NKDA (Severity: Unknown severity, Onset: Unknown) Current medications: No qualifying data available , Medications (1) Active Scheduled Meds: None Unscheduled Meds (1): 01/10/18 tetanus/diphth/pertuss (Tdap) adult/adol 0.5 mL IM ONCALL PRN Meds: None One Time Meds: None Continuous Infusions: None Problem list: Problems (Active Problems Only) (SNOMED CT: [id number], Onset: 01/10/18) Physical Examination VS/Measurements Inpatient Vital signs (ST) Vitals Tmp(F) Pulse BP RR SpO2 FIO2 (no data in last 48 hours) 24 Hr Tmax: No Data Available Vital Signs are the last 5 in the past 48 hours. Obstetric Exam Cervix: dilated 3.5 cm, 70 % effaced, station/ evidence of descent -3, membrane status intact. Bronson/ Baby A evaluation: movement present, heart tones ( within normal limits (110 to 160 bpm), variability minimal (undetectable to 5 bpm over baseline), acceleration pattern Greater th an or equal to 10 bpm above baseline for greater than or equal to 10 seconds, decelerations absent), assessment of heart tracing catagory 2. Respiratory: Lungs are clear to auscultation. Cardiovascular: Normal rate, Regular rhythm. Gastrointestinal: Soft, Non-tender. Histories History History (1,0,0,1) # 1 Baby 1 Outcome Date: 08/20/2014 Outcome: Live Outcome or Result: Vaginal Gender: Female Gest Age: 39 weeks Wt: -- Hospital: -- [facility] Labor: -- Child's Name: -- Baby's Father: -- Past Medical History: Resolved ([id number]): Onset on 11/20/2013 at 13 years. Resolved on 08/20/2014 at 13 years. Family History: Family History (ST) Mother: Hypertension Procedure history: No active procedure history items have been selected or recorded. Social History Tobacco Details: Use: Never smoker. Previous treatment: None. Ready to change: No. Household tobacco concerns: No. Tobacco smoke exposure: None. Did the Patient Smoke Cigarettes Anytime During the Last 365 Days? No. Cessation Counseling Provided? No. . Review / Management Results review: No qualifying data available. Impression and Plan 17 y.o. at 39 2/7 weeks - Pt presents with leaking. Amnisure performed. - FHT cat 2- no decelerations and accelerations but reduced variability. Overall reassuring Adeola Mcclain MD Addendum by Adeola Mcclain MD on AMnisure is positive. 01/10/2018 12:36 Bedside US bronson, cephalic, posterior placenta, MVP 5 cm. Admit to L&D for delivery. FHT with moderate variability, no decelerations, positive accelerations. Occasional contractions. Adeola Mcclain MD Addendum by Adeola Mcclain MD on GBS positive. Will give antibiotics. 01/10/2018 12:41 Adeola Mcclain MD
--- NOTE | 2018-08-22 16:37 | EDPHYS ---
Physician Documentation [facility] Name: Ashkan Lopez Age: 17 yrs Sex: Female : 2000 Arrival Date: 08/22/2018 Time: 16:17 Bed 16 Private MD: ED Physician Bill Mckeon HPI: 08/22 16:33 This 17 yrs old Black Female presents to ER via Ambulatory with complaints of Eye pm1 Problem. 16:33 The patient is experiencing blurred vision, pain, redness, tearing, The patient pm1 sustained a scratch, to the left eye, caused by fingernail, daughter scratched her eye. Has not cut her child's fingernails in fear of cutting them too short. Onset: The symptoms/episode began/occurred at 12:00. Duration: the symptoms are continuous. Aggravated by nothing. Alleviated by nothing. Associated signs and symptoms: Pertinent negatives: None. dizziness, ear ache, fever, headache, runny nose. Patient wears soft contacts, cosmetically . Severity of symptoms: in the emergency department the symptoms are unchanged. The patient has not experienced similar symptoms in the past. The patient has not recently seen a physician. 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 - Social history:: Smoking status: unknown. - Ebola Screening: : Patient negative for fever greater than or equal to 101.5 degrees Fahrenheit, and additional compatible Ebola Virus Disease symptoms Patient denies exposure to infectious person Patient denies travel to an Ebola-affected area in the 21 days before illness onset No symptoms or risks identified at this time. ROS: 16:33 Constitutional: Negative for fever, chills, and weight loss, ENT: Negative for injury, pm1 pain, and discharge, Neck: Negative for injury, pain, and swelling. 16:33 Cardiovascular: Negative for chest pain, palpitations, and edema, Respiratory: Negative for shortness of breath, cough, wheezing, and pleuritic chest pain, Abdomen/GI: Negative for abdominal pain, nausea, vomiting, diarrhea, and constipation, Back: Negative for injury and pain, MS/Extremity: Negative for injury and deformity, Skin: Negative for injury, rash, and discoloration, Neuro: Negative for headache, weakness, numbness, tingling, and seizure. 16:33 Eyes: Positive for blurry vision, pain, redness, tearing, of the left eye. Exam: 16:33 Constitutional: This is a well developed, well nourished patient who is awake, alert, pm1 and in no acute distress. Head/Face: Normocephalic, atraumatic. 16:33 ENT: Nares patent. No nasal discharge, no septal abnormalities noted. Tympanic membranes are normal and external auditory canals are clear. Oropharynx with no redness, swelling, or masses, exudates, or evidence of obstruction, uvula midline. Mucous membranes moist. Neck: Trachea midline, no thyromegaly or masses palpated, and no cervical lymphadenopathy. Supple, full range of motion without nuchal rigidity, or vertebral point tenderness. No Meningismus. Chest/axilla: Normal chest wall appearance and motion. Nontender with no deformity. No lesions are appreciated. Cardiovascular: Regular rate and rhythm with a normal S1 and S2. No gallops, murmurs, or rubs. Normal PMI, no JVD. No pulse deficits. Respiratory: Lungs have equal breath sounds bilaterally, clear to auscultation and percussion. No rales, rhonchi or wheezes noted. No increased work of breathing, no retractions or nasal flaring. Abdomen/GI: Soft, non-tender, with normal bowel sounds. No distension or tympany. No guarding or rebound. No evidence of tenderness throughout. Back: No spinal tenderness. No costovertebral tenderness. Full range of motion. Skin: Warm, dry with normal turgor. Normal color with no rashes, no lesions, and no evidence of cellulitis. MS/ Extremity: Pulses equal, no cyanosis. Neurovascular intact. Full, normal range of motion. 16:33 Eyes: Periorbital structures: appear normal, Extraocular movements: intact throughout, Corneas: abrasion, approximately 3 mm(s), on the left, at 6 o'clock, foreign body, is not appreciated, a fluorescein strip employed to appreciate the findings, Sclera: no appreciated abnormality, Anterior chamber: normal, no hyphema. 16:33 Neuro: Orientation: is normal, Motor: is normal, moves all fours, Gait: is steady, at a normal pace, without difficulty. Vital Signs: 16:19 BP 116 / 61; Pulse 92; Resp 18; Temp 98.2(TE); Pulse Ox 99% on R/A; Weight 58.97 kg; hj Height 5 ft. 4 in. (162.56 cm); Pain 8/10; 16:19 Body Mass Index 22.32 (58.97 kg, 162.56 cm) hj Visual Acuity: 16:53 Left Eye Visual acuity 20/40, ; Right Eye Visual acuity 20/13, ; Both Eyes Visual dh3 acuity 20/13; Without Lenses; MDM: 16:33 Patient medically screened. pm1 16:35 Data reviewed: vital signs. Data interpreted: Pulse oximetry: on room air is 99 %. pm1 Interpretation: normal. Counseling: I had a detailed discussion with the patient and/or guardian regarding: the historical points, exam findings, and any diagnostic results supporting the discharge/admit diagnosis, the need for outpatient follow up, for definitive care, an opthalmologist, to return to the emergency department if symptoms worsen or persist or if there are any questions or concerns that arise at home. 08/22 16:23 Order name: Visual Acuity; Complete Time: 16:55 pm1 08/22 16:23 Order name: Eye Tray; Complete Time: 16:30 pm1 08/22 16:23 Order name: Fluoresene Opth strip; Complete Time: 16:30 pm1 Administered Medications: 16:30 Drug: Tetracaine Drops 0.5 % 1 drops Route: Ophthalmic; Site: left eye; iw 16:35 Drug: Gentamicin Drops 0.3 % 2 drops Route: Ophthalmic; Site: left eye; iw 16:44 Drug: Tetanus-Diphtheria Toxoid Adult 0.5 ml {Founding Partner: [employer]. Exp: iw 06/19/2020. Lot #: [id number]. } Route: IM; Site: left deltoid; 16:46 Not Given (Physician Discretion): ToBREx Drops (0.3 %) 2 drops Ophthalmic once iw Disposition: 17:58 Co-signature as Attending Physician, Bill Mckeon MD I agree with the assessment and kdr plan of care. Disposition: 08/22/18 16:37 Discharged to Home. Impression: Injury of conjunctiva and corneal abrasion without foreign body, left eye. - Condition is Stable. - Discharge Instructions: Corneal Abrasion. - Prescriptions for Vigamox 0.5 % Ophthalmic Drops - instill 1 drop by OPHTHALMIC route every 8 hours for 7 days; 5 milliliter. Tramadol 50 mg Oral Tablet - take 1 tablet by ORAL route every 8 hours as needed; 12 tablet. - Work release form, Medication Reconciliation Form, Thank You Letter, Antibiotic Education, Prescription Opioid Use form. - Follow up: Emergency Department; When: As needed; Reason: Worsening of condition. Follow up: Private Physician; When: 2 - 3 days; Reason: Recheck today's complaints, Continuance of care, Re-evaluation by your physician. Follow up: Neo Zheng MD; When: 2 - 3 days; Reason: Recheck today's complaints, Continuance of care, Re-evaluation by your physician. - Problem is new. - Symptoms have improved. Signatures: Bill Mckeon MD MD kdr Yasmeen Trinh RN RN iw Rafita Bajwa RN RN hj Jese Moseley NP CLIENT SERVICE ADMINISTRATOR pm1 Corrections: (The following items were deleted from the chart) 17:05 16:37 08/22/2018 16:37 Discharged to Home. Impression: Injury of conjunctiva and iw corneal abrasion without foreign body, left eye. Condition is Stable. Forms are Medication Reconciliation Form, Thank You Letter, Antibiotic Education, Prescription Opioid Use. Follow up: Emergency Department; When: As needed; Reason: Worsening of condition. Follow up: Private Physician; When: 2 - 3 days; Reason: Recheck today's complaints, Continuance of care, Re-evaluation by your physician. Follow up: Neo Zheng; When: 2 - 3 days; Reason: Recheck today's complaints, Continuance of care, Re-evaluation by your physician. Problem is new. Symptoms have improved. pm1
--- NOTE | 2018-08-22 16:37 | ER ---
Nurse's Notes [facility] Name: Ashkan Lopez Age: 17 yrs Sex: Female : 2000 Arrival Date: 08/22/2018 Time: 16:17 Bed 16 Private MD: Diagnosis: Injury of conjunctiva and corneal abrasion without foreign body, left eye Presentation: 08/22 16:18 Presenting complaint: Patient states: my daughter poked my L eye with her finger, hj around 12 noon; i could see but when i open my L eye, it will start tearing up;. Transition of care: patient was not received from another setting of care. Onset of symptoms was August 22, 2018. Risk Assessment: Do you want to hurt yourself or someone else? Patient reports no desire to harm self or others. Initial Sepsis Screen: Does the patient meet any 2 criteria? No. Patient's initial sepsis screen is negative. Does the patient have a suspected source of infection? No. Patient's initial sepsis screen is negative. Care prior to arrival: None. 16:18 Method Of Arrival: Ambulatory 16:18 Acuity: CLARI 4 hj Triage Assessment: 16:30 General: Appears in no apparent distress. Behavior is calm, cooperative. iw NICK SETTER: 16:30 LMP N/A - iw Historical: - Allergies: 16:19 No Known Allergies; hj - PMHx: 16:19 None; hj - PSHx: 16:19 None; hj - Immunization history:: Adult Immunizations unknown. - Social history:: Smoking status: unknown. - Ebola Screening: : Patient negative for fever greater than or equal to 101.5 degrees Fahrenheit, and additional compatible Ebola Virus Disease symptoms Patient denies exposure to infectious person Patient denies travel to an Ebola-affected area in the 21 days before illness onset No symptoms or risks identified at this time. Screenin:00 Abuse screen: Denies threats or abuse. Denies injuries from another. Nutritional iw screening: No deficits noted. Tuberculosis screening: No symptoms or risk factors identified. Fall Risk None identified. Assessment: 16:30 General: Appears in no apparent distress. Behavior is calm, cooperative. Pain: iw Complains of pain in left eye. Neuro: Level of Consciousness is awake, alert, obeys commands, Moves all extremities. Cardiovascular: Patient's skin is warm and dry. Respiratory: Respiratory effort is even, unlabored, Respiratory pattern is regular, symmetrical. EENT: Sclera/Cornea w/ abrasion noted on iris of left eye. Derm: Skin is intact, is healthy with good turgor. Musculoskeletal: Range of motion: intact in all extremities. Vital Signs: 16:19 BP 116 / 61; Pulse 92; Resp 18; Temp 98.2(TE); Pulse Ox 99% on R/A; Weight 58.97 kg; hj Height 5 ft. 4 in. (162.56 cm); Pain 8/10; 16:19 Body Mass Index 22.32 (58.97 kg, 162.56 cm) hj Visual Acuity: 16:53 Left Eye Visual acuity 20/40, ; Right Eye Visual acuity 20/13, ; Both Eyes Visual dh3 acuity 20/13; Without Lenses; ED Course: 16:17 Patient arrived in ED. hj 16:19 Triage completed. hj 16:19 Arm band placed on left wrist. hj 16:22 Jese Moseley NP is PHCP. pm1 16:22 Bill Mckeon MD is Attending Physician. pm1 16:25 Yasmeen Trinh, ZEUS is Primary Nurse. iw 16:30 Patient has correct armband on for positive identification. iw 16:36 Neo Zheng MD is Referral Physician. pm1 17:04 No provider procedures requiring assistance completed. Patient did not have IV access iw during this emergency room visit. Administered Medications: 16:30 Drug: Tetracaine Drops 0.5 % 1 drops Route: Ophthalmic; Site: left eye; iw 16:35 Drug: Gentamicin Drops 0.3 % 2 drops Route: Ophthalmic; Site: left eye; iw 16:44 Drug: Tetanus-Diphtheria Toxoid Adult 0.5 ml {Community Relations Liaison: [employer]. Exp: iw 06/19/2020. Lot #: [id number]. } Route: IM; Site: left deltoid; 16:46 Not Given (Physician Discretion): ToBREx Drops (0.3 %) 2 drops Ophthalmic once iw Outcome: 16:37 Discharge ordered by MD. pm1 17:04 Discharged to home ambulatory, with family. iw 17:04 Condition: good 17:04 Discharge instructions given to patient, family, Instructed on discharge instructions, follow up and referral plans. medication usage, Demonstrated understanding of instructions, follow-up care, medications, Prescriptions given X 1. 17:05 Patient left the ED. iw Signatures: Yasmeen Trinh RN RN Rafita Verde RN RN hj Jese Moseley, GERTRUDE SENIOR RECRUITER pm1 Ivanna Goodwin 3 Corrections: (The following items were deleted from the chart) 16:21 16:19 Pulse 92bpm; Resp 18bpm; Pulse Ox 99% RA; Temp 98.2F Temporal; 58.97 kg; Height 5 hj ft. 4 in.; BMI: 22.3; Pain 8/10; hj
[2018-08-22] MEDS ORDERED: TETRACAINE HCL 0.5% 4ML OPTH ONE (16:39)
[2018-08-22] MEDS ORDERED: FLUORESCEIN SODIUM 1 MG/WRAP ONE (16:39)
[2018-08-22] MEDS ORDERED: GENTAMICIN 0.3% OPTH DROP 5ML ONE (16:40)
[2018-08-22] MEDS ORDERED: TETANUS & DIPHTHERIA TOX,ADULT 0.5 ML VIAL ONE (16:54)
== END 2018-08-22 17:05 | disposition home or self-care (01) ==
LOC: ER 16:14
DX: S05.02XA Injury of conjunctiva and corneal abrasion without foreign body, left eye, initial encounter (principal); W50.4XXA Accidental scratch by another person, initial encounter; Y93.9 Activity, unspecified; Y92.9 Unspecified place or not applicable; Z23 Encounter for immunization
CPT/HCPCS: 90714; 99283